=== PATIENT | female | born 1970 | race African-American/Black ===

== ENCOUNTER 2019-03-09 11:56 | Inpatient (IN) | payer BC ==
[~2019-03-09] VITALS: Ht 167.6 cm; Wt 64.9 kg
[2019-03-09] MEDS ORDERED: ASPIRIN 81MG TABLET PO ONE (15:45)
[2019-03-09] MEDS ORDERED: NITROGLYCERIN 0.4MG TABLET SL SL PRN (15:45)
[2019-03-09 16:24] LABS: CHLORIDE 111 mEq/L (98-107)
[2019-03-09 16:25] LABS: HCG SCREEN NEGATIVE
[2019-03-09 16:28] LABS: BASOPHILS % 0.6 % (0.0-2.0); D-DIMER 0.31 mg/L FEU (<0.50); EOSINOPHILS % 2.6 % (0.0-5.0); HEMATOCRIT. 35.8 % (36.0-48.0); HEMOGLOBIN. 11.4 g/dL (12.0-16.0); INR 1.1; LYMPHOCYTES % 35.6 % (20.0-50.0); MEAN CORPUSCULAR HEMOGLOBIN 26.3 pg (28.0-32.0); MEAN CORPUSCULAR VOLUME 82.3 fL (81.0-99.0); MEAN PLATELET VOLUME 7.9 fl (7.4-10.4); MONOCYTES % 7.6 % (2.0-8.0); NEUTROPHILS % 53.6 % (40.0-76.0); PLATELET 277 x1000/uL (130-400); PROTHROMBIN TIME 10.9 sec (9.6-11.0); RED BLOOD CELL COUNT 4.35 mill/uL (4.2-5.4); RED CELL DISTRIBUTION WIDTH 15.4 % (11.6-14.6)
[2019-03-09] MEDS ORDERED: IPRATROPIUM/ALBUTEROL 0.5-3(2.5)MG/3ML NEB NEB PRN (20:45)
[2019-03-09] MEDS ORDERED: HYDROCODONE/ACETAMINOPHEN 5/325MG TABLET PO PRN (20:45)
[2019-03-09] MEDS ORDERED: MAGNESIUM/ALUMINUM HYDROXIDE/SIMETHICONE 30ML UDC PO PRN (20:45)
[2019-03-09] MEDS ORDERED: ONDANSETRON HCL 4MG/2ML INJ IV PRN (20:45)
[2019-03-09] MEDS ORDERED: DOCUSATE SODIUM 100MG CAPSULE PO PRN (20:45)
[2019-03-09] MEDS ORDERED: CLONIDINE 0.1MG TABLET PO PRN (20:45)
[2019-03-09 21:25] VITALS: BP 129/79
[2019-03-09] MEDS ORDERED: ASPI-864 PO (22:12)
[2019-03-09] MEDS ORDERED: LEVO88TA7 MT (22:12)
[2019-03-09] MEDS: ACETAMINOPHEN 325MG TABLET PO PRN (22:47)
[2019-03-09] MEDS: ENOXAPARIN 40MG/0.4ML SYR SUBCUT SCH (22:49)
[2019-03-10] VITALS: BP 106/66
[2019-03-10 01:01] LABS: CHLORIDE 111 mEq/L (98-107)
[2019-03-10 01:10] LABS: CREATINE KINASE 159 IU/L (26-192)
[2019-03-10 01:11] LABS: CREATINE KINASE MB FRACTION < 1.0 ng/mL (0.5-3.6)
[2019-03-10 04:00] VITALS: BP 98/69
[2019-03-10 08:00] VITALS: BP 112/71
[2019-03-10] MEDS: ASPIRIN 81MG EC TABLET PO SCH ×2 (08:46→12:15)
[2019-03-10 10:42] LABS: BASOPHILS % 0.7 % (0.0-2.0); EOSINOPHILS % 2.9 % (0.0-5.0); HEMATOCRIT. 33.1 % (36.0-48.0); HEMOGLOBIN. 10.6 g/dL (12.0-16.0); LYMPHOCYTES % 33.8 % (20.0-50.0); MEAN CORPUSCULAR HEMOGLOBIN 26.2 pg (28.0-32.0); MEAN CORPUSCULAR VOLUME 81.6 fL (81.0-99.0); MEAN PLATELET VOLUME 8.2 fl (7.4-10.4); MONOCYTES % 7.2 % (2.0-8.0); NEUTROPHILS % 55.4 % (40.0-76.0); PLATELET 274 x1000/uL (130-400); RED BLOOD CELL COUNT 4.06 mill/uL (4.2-5.4); RED CELL DISTRIBUTION WIDTH 15.4 % (11.6-14.6)
[2019-03-10 11:25] LABS: LDL CHOLESTEROL 85 mg/dL (5-100)
[2019-03-10 11:26] LABS: CREATINE KINASE 137 IU/L (26-192); HDL CHOLESTEROL 46 mg/dL (40-59)
[2019-03-10 11:28] LABS: CREATINE KINASE MB FRACTION < 1.0 ng/mL (0.5-3.6)
[2019-03-10 12:00] VITALS: BP 102/69
[2019-03-10] MEDS: LEVOTHYROXINE SODIUM 88MCG TABLET PO SCH (12:15)
[2019-03-10] MEDS ORDERED: REGADENOSON 0.4 MG/5 ML IV NR (13:45)
[2019-03-10 16:00] VITALS: BP 105/71
[2019-03-10] MEDS: ACETAMINOPHEN 325MG TABLET PO PRN (17:10)
[2019-03-10 20:00] VITALS: BP 101/59
[2019-03-10] MEDS: ENOXAPARIN 40MG/0.4ML SYR SUBCUT SCH (21:00)
[2019-03-11] VITALS: BP 105/85
[2019-03-11 04:00] VITALS: BP 100/64
[2019-03-11 04:59] VITALS: BP 101/59
[2019-03-11 07:18] LABS: BASOPHILS % 0.7 % (0.0-2.0); HEMATOCRIT. 33.1 % (36.0-48.0); HEMOGLOBIN. 10.8 g/dL (12.0-16.0); LYMPHOCYTES % 37.4 % (20.0-50.0); MEAN CORPUSCULAR HEMOGLOBIN 26.4 pg (28.0-32.0); MEAN CORPUSCULAR VOLUME 81.2 fL (81.0-99.0); MEAN PLATELET VOLUME 7.7 fl (7.4-10.4); MONOCYTES % 9.9 % (2.0-8.0); PLATELET 270 x1000/uL (130-400); RED BLOOD CELL COUNT 4.08 mill/uL (4.2-5.4); RED CELL DISTRIBUTION WIDTH 15.2 % (11.6-14.6)
[2019-03-11 07:30] LABS: CHLORIDE 111 mEq/L (98-107)
[2019-03-11 07:40] LABS: PHOSPHORUS 3.3 mg/dL (2.5-4.9)
[2019-03-11 07:41] LABS: TOTAL IRON BINDING CAPACITY 314 ug/dL (250-450)
[2019-03-11 08:00] VITALS: BP 113/74
[2019-03-11] MEDS: ASPIRIN 81MG EC TABLET PO SCH ×2 (09:00)
[2019-03-11] MEDS ORDERED: REGADENOSON 0.4 MG/5 ML IV ONE (11:05)
[2019-03-11 11:37] LABS: CLARITY URINE CLEAR (CLEAR); COLOR URINE YELLOW (YELLOW); KETONES URINE NEGATIVE (NEGATIVE); LEUKOCYTE ESTERASE URINE NEGATIVE (NEGATIVE); NITRITE URINE NEGATIVE (NEGATIVE); OCCULT BLOOD URINE NEGATIVE (NEGATIVE); PROTEIN URINE NEGATIVE (NEGATIVE); SPECIFIC GRAVITY URINE 1.008 (1.005-1.030); UROBILINOGEN URINE 0.2 E.U./dL (0.2-1.0)
[2019-03-11 12:08] LABS: *AMPHETAMINES SCREEN URINE NEGATIVE (NEGATIVE)
[2019-03-11 12:09] LABS: *BARBITURATES SCREEN URINE NEGATIVE (NEGATIVE); *BENZODIAZEPINES SCREEN URINE NEGATIVE (NEGATIVE); *COCAINE SCREEN URINE NEGATIVE (NEGATIVE); METHADONE URINE SCREEN NEGATIVE (NEGATIVE); OPIATES URINE SCREEN NEGATIVE (NEGATIVE); PHENCYCLIDINE URINE SCREEN NEGATIVE (NEGATIVE)
[2019-03-11 12:10] LABS: CANNABINOID URINE SCREEN NEGATIVE (NEGATIVE)
[2019-03-11] MEDS: LEVOTHYROXINE SODIUM 88MCG TABLET PO SCH (12:15)
[2019-03-11 16:00] VITALS: BP 110/73
[2019-03-11 17:37] VITALS: BP 110/73
== END 2019-03-11 19:25 | disposition home or self-care (01) | DRG 311 ==
LOC: ER 12:46 → 8WST 19:09 → ENRESERV 21:07
PROVIDERS: ADMIT Internal Medicine; ATTEND Internal Medicine
DX: I20.0 Unstable angina (principal); R01.1 Cardiac murmur, unspecified; D64.9 Anemia, unspecified; E03.9 Hypothyroidism, unspecified; I45.10 Unspecified right bundle-branch block; I10 Essential (primary) hypertension; R00.1 Bradycardia, unspecified; Z83.49 Family history of other endocrine, nutritional and metabolic diseases; Z82.49 Family history of ischemic heart disease and other diseases of the circulatory system; Z79.01 Long term (current) use of anticoagulants; Z79.899 Other long term (current) drug therapy
CPT/HCPCS: 36415; 71045; 78452; 80048; 80061; 80305; 81003; 82550; 82553; 82728; 82962; 83036; 83540; 83550; 83735; 83880; 84100; 84443; 84484; 84703; 85379; 93005; 93017; 93306; 93970; 99285; A9500; J1650; J2785